=== PATIENT | male | born 1950 | race Caucasian/White ===

== ENCOUNTER 2017-03-04 19:50 | Observation (INO) | payer MEDICARE, BC ==
[~2017-03-04] VITALS: Ht 177.8 cm; Wt 87.1 kg
[2017-03-04 20:10] LABS: BASO % 0.3 % (0.0-2.0); EOS # 0.9 (0.0-0.7); EOS % 11.9 % (0-4.0); GRAN # 3.6 (1.4-6.5); GRAN % 45.7 % (42.2-75.2); HEMATOCRIT 44.6 % (42.0-52.0); HEMOGLOBIN 15.2 g/dl (13.5-18.0); LYMPH # 2.5 (1.2-3.4); LYMPH % 32.1 % (20.0-51.0); MEAN CELL VOLUME 94 fl (80.0-100.0); MEAN CORPUSCULAR HEMOGLOBIN 32 pg (27.0-31.0); MEAN CORPUSCULAR HGB CONC 34 g/dl (33.0-37.0); MEAN PLATELET VOLUME 10.1 fl (7.4-10.4); MONO # 0.8 (0.1-0.6); MONO % 9.7 % (1.7-9.3); PLATELET COUNT 217 K/mm3 (130-400); RED BLOOD COUNT 4.74 M/mm3 (4.20-5.60); REDCELL DISTRIBUTION WIDTH-CV 13.6 % (11.5-14.5); WHITE BLOOD COUNT 7.9 K/mm3 (4.8-10.8)
[2017-03-04] MEDS ORDERED: COZAAR 50MG50 MG/TAB PO (20:11)
[2017-03-04] MEDS ORDERED: THE MEDICINE S200 M2 PO (20:12)
[2017-03-04] MEDS ORDERED: FISH OIL 1000MG1 CAP PO (20:12)
[2017-03-04] MEDS ORDERED: PHARMASSURE MA500 MG PO (20:12)
[2017-03-04] MEDS ORDERED: PHARMASSURE SA160 MG PO (20:13)
[2017-03-04] MEDS ORDERED: VITAMIN D32000 IU PO (20:13)
[2017-03-04] MEDS ORDERED: MILK THISTLE150 MG PO (20:13)
[2017-03-04] MEDS ORDERED: VITAMIN B COMPL1 TA1 PO (20:14)
[2017-03-04] MEDS ORDERED: L-CARNITINE500 M1 PO (20:14)
[2017-03-04] MEDS ORDERED: GINKGO3 PO (20:14)
[2017-03-04 20:18] LABS: ADJUSTED CALCIUM 9.3 mg/dL (8.4-10.2); ALBUMIN 4.1 gm/dL (3.5-5.0); BILIRUBIN,TOTAL 0.7 mg/dL (0.0-1.0); CALCIUM 9.4 mg/dL (8.4-10.2); POTASSIUM 4.2 mmol/L (3.4-5.0); TOTAL PROTEIN 6.9 gm/dL (6.4-8.2)
[2017-03-04] MEDS ORDERED: QUERCETIN1 POW PO (20:29)
[2017-03-04 20:30] LABS: TROPONIN-I 0.015 ng/mL (0.000-0.034)
[2017-03-04] MEDS ORDERED: [UNRECOGNIZED DRUG - OTHER] PO (20:30)
[2017-03-04] MEDS ORDERED: [UNRECOGNIZED DRUG - OTHER] PO (20:31)
[2017-03-04] MEDS ORDERED: RESVERATROL250 MG PO (20:31)
[2017-03-04] MEDS ORDERED: GRAPE SEED EXTR PO (20:31)
[2017-03-04] MEDS ORDERED: [UNRECOGNIZED DRUG - OTHER] PO (20:33)
[2017-03-04] MEDS ORDERED: RHODIOLA PO (20:34)
[2017-03-04 20:55] LABS: PROTHROMBIN TIME 11.1 SECONDS (9.7-12.8)
[2017-03-04 22:08] VITALS: BP 122/89; PULSE 61; TEMP 97.6
[2017-03-04] MEDS ORDERED: LUTEIN20 M1 PO (22:42)
[2017-03-04] MEDS ORDERED: [UNRECOGNIZED DRUG - OTHER] (22:44)
[2017-03-04] MEDS ORDERED: COLLAGEN (22:46)
[2017-03-04] MEDS ORDERED: [UNRECOGNIZED DRUG - REMARK] PO (22:47)
[2017-03-04 23:42] LABS: MAGNESIUM 1.9 mg/dL (1.6-2.3)
[2017-03-05] VITALS (7 sets, daily range): BP systolic 109–134; BP diastolic 67–79; PULSE 61–88; TEMP 97.8–98.7
[2017-03-05 07:55] LABS: TROPONIN-I < 0.012 ng/mL (0.000-0.034)
[2017-03-05 08:05] LABS: HDL CHOLESTEROL 35 mg/dL; TRIGLYCERIDE 352 mg/dL
[2017-03-05 08:48] LABS: CHOLESTEROL 204 mg/dL (120-200); LDL CHOLESTEROL 99 mg/dL
[2017-03-05] MEDS ORDERED: PRAVACHOL 40MG40 MG PO (13:33)
[2017-03-05] MEDS ORDERED: TOPROL XL 25MG25 MG PO (13:35)
[2017-03-05] MEDS ORDERED: ASPIRIN 81M81 MG/TA2 PO (13:36)
== END 2017-03-05 15:07 | disposition home or self-care (01) ==
LOC: COL.ER 19:50 → MEDICAL 21:06
PROVIDERS: Emergency Medicine; Nurse Practitioner Family
DX: I25.110 Atherosclerotic heart disease of native coronary artery with unstable angina pectoris (principal); I45.19 Other right bundle-branch block; I10 Essential (primary) hypertension; K21.9 Gastro-esophageal reflux disease without esophagitis; G43.909 Migraine, unspecified, not intractable, without status migrainosus; Z95.5 Presence of coronary angioplasty implant and graft; Z79.82 Long term (current) use of aspirin; Z87.891 Personal history of nicotine dependence; Z82.49 Family history of ischemic heart disease and other diseases of the circulatory system; Z83.3 Family history of diabetes mellitus
CPT/HCPCS: A9502; G0378; J1650; J2270; J2785; J7030